=== PATIENT | male | born 1985 | race Caucasian/White ===

== ENCOUNTER → 2021-01-10 | Outpatient (CLI) | payer OTHER | LOC: KOH-I 09:24 | DX: M79.672 Pain in left foot (principal); M79.671 Pain in right foot; M19.071 Primary osteoarthritis, right ankle and foot; M19.072 Primary osteoarthritis, left ankle and foot | CPT/HCPCS: 73630 ==

== ENCOUNTER → 2021-01-27 | Outpatient (CLI) | payer OTHER | LOC: KOH-I 14:17 | DX: M25.571 Pain in right ankle and joints of right foot (principal); M77.31 Calcaneal spur, right foot | CPT/HCPCS: 73721 ==

== ENCOUNTER → 2021-07-04 | Outpatient (CLI) | payer OTHER ==
[~2021-07-04] MED LIST: FEBUXOSTAT80 MG PO; HYDROCODON-ACE1 EAC6 PO; IBU800 MG PO; LEVOTHYROXINE150 MCG PO; LOPRESSOR 25 MG25 MG PO; NORVASC10 MG PO; PEPCID20 MG PO
[2021-07-04 10:21] LABS: HEMOGLOBIN 15.1 gm/dl (14.0-17.5); RED BLOOD COUNT 5.05 M/UL (4.20-5.50); WHITE BLOOD COUNT 9.7 K/UL (4.5-11.0)
[2021-07-04 10:55] LABS: BUN/CREATININE RATIO 13 (0-10)
== END ==
LOC: OPSV2 09:00
PROVIDERS: Nurse Practitioner Family; Podiatrist Foot & Ankle Surgery
DX: Z01.812 Encounter for preprocedural laboratory examination (principal); M19.071 Primary osteoarthritis, right ankle and foot; M25.871 Other specified joint disorders, right ankle and foot; I10 Essential (primary) hypertension; R73.03 Prediabetes; Z20.822 Contact with and (suspected) exposure to COVID-19
CPT/HCPCS: 36415; 80048; 85027

== ENCOUNTER → 2021-07-07 | Day surgery (SDC) | payer OTHER ==
[~2021-07-07] VITALS: Ht 170.2 cm; Wt 143.8 kg
== END | disposition home or self-care (01) ==
LOC: OR 05:39
DX: M19.071 Primary osteoarthritis, right ankle and foot (principal); M25.871 Other specified joint disorders, right ankle and foot; G89.29 Other chronic pain; I10 Essential (primary) hypertension; K21.9 Gastro-esophageal reflux disease without esophagitis; M10.9 Gout, unspecified; E66.01 Morbid (severe) obesity due to excess calories; E03.9 Hypothyroidism, unspecified; Z68.42 Body mass index [BMI] 45.0-49.9, adult; Z88.8 Allergy status to other drugs, medicaments and biological substances; Z79.899 Other long term (current) drug therapy; Z20.822 Contact with and (suspected) exposure to COVID-19
CPT/HCPCS: 73610; 82962; C1713; J0690; J1100; J1885; J2001; J2250; J2405; J2704; J2795; J3010; J3301; J3370; J7120